=== PATIENT | female | born 1990 | race Caucasian/White ===

== ENCOUNTER 2018-01-21 03:52 | Emergency (ER) | payer OTHER ==
[2018-01-21 04:43] LABS: URINE BLOOD (Dip) POC 1+ (NEGATIVE); URINE GLUCOSE (Dip) POC Negative (NEGATIVE); URINE KETONES (Dip) POC Negative (NEGATIVE); URINE LEUKOCYTE EST (Dip) POC Negative (NEGATIVE); URINE NITRITE (Dip) POC Negative (NEGATIVE); URINE TOTAL PROTEIN POC 1+ (NEGATIVE)
== END 2018-01-21 06:04 | disposition home or self-care (01) ==
LOC: FTE 03:52
DX: L24.4 Irritant contact dermatitis due to drugs in contact with skin (principal); R30.0 Dysuria
CPT/HCPCS: 81003; 81025; 99284

== ENCOUNTER 2018-03-11 12:05 | Emergency (ER) | payer OTHER ==
[2018-03-11 13:10] LABS: URINE PH (Dip) POC 6.5 (5.0-8.5)
[2018-03-11 13:10] LABS: URINE BLOOD (Dip) POC Trace-intact (NEGATIVE); URINE GLUCOSE (Dip) POC Negative (NEGATIVE); URINE KETONES (Dip) POC Negative (NEGATIVE); URINE LEUKOCYTE EST (Dip) POC Negative (NEGATIVE); URINE NITRITE (Dip) POC Negative (NEGATIVE); URINE TOTAL PROTEIN POC Negative (NEGATIVE)
[2018-03-11 13:30] LABS: ADD UMIC YES; UR ASCORBIC ACID NEGATIVE (NEGATIVE); UR BACTERIA FEW /HPF (NONE SEEN); UR BILIRUBIN (Dip) NEGATIVE (NEGATIVE); UR BLOOD (Dip) 1+ mg/dL (NEGATIVE); UR CLARITY CLEAR (CLEAR); UR COLOR YELLOW (YELLOW); UR GLUCOSE (Dip) NEGATIVE (NEGATIVE); UR KETONES (Dip) NEGATIVE (NEGATIVE); UR LEUKOCYTE ESTERASE (Dip) NEGATIVE Leu/ul (NEGATIVE); UR MUCUS FEW /HPF (NONE SEEN); UR NITRITE (Dip) NEGATIVE (NEGATIVE); UR RBC 4 /HPF (0-5); UR SQUAMOUS EPITHELIAL CELL FEW /HPF (FEW); UR TOTAL PROTEIN (Dip) NEGATIVE (NEGATIVE); UR UROBILINOGEN (Dip) NEGATIVE (NEGATIVE); UR WBC 1 /HPF (0-5)
== END 2018-03-11 13:48 | disposition home or self-care (01) ==
LOC: FTE 12:05
DX: R39.9 Unspecified symptoms and signs involving the genitourinary system (principal); R21 Rash and other nonspecific skin eruption
CPT/HCPCS: 81001; 81003; 81025; 87591; 99283

== ENCOUNTER 2018-07-09 23:04 | Emergency (ER) | payer SELFPAY, OTHER | END 2018-07-09 23:54 | disposition left against medical advice (07) | LOC: FTE 23:04 | DX: Z53.21 Procedure and treatment not carried out due to patient leaving prior to being seen by health care provider (principal) ==

== ENCOUNTER 2018-08-06 23:35 | Emergency (ER) | payer SELFPAY | END 2018-08-07 04:51 | disposition left against medical advice (07) | LOC: FTE 23:35 | DX: Z53.21 Procedure and treatment not carried out due to patient leaving prior to being seen by health care provider (principal) ==